=== PATIENT | male | born 2000 | race Hispanic/Latino ===

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

== ENCOUNTER 2021-05-25 13:16 | Emergency (ER) | payer OTHER ==
[~2021-05-25] VITALS: Ht 167.6 cm; Wt 89.1 kg
[~2021-05-25 13:16] MED LIST: IBUP80TA PO
[2021-05-25 18:42] VITALS: BP 129/62
== END 2021-05-25 18:44 | disposition home or self-care (01) ==
LOC: M ED 13:16
DX: J06.9 Acute upper respiratory infection, unspecified (principal); R94.31 Abnormal electrocardiogram [ECG] [EKG]